=== PATIENT | female | born 1940 | race Hispanic/Latino ===

== ENCOUNTER 2023-12-09 03:21 | Inpatient (IN) | payer MEDICARE ==
[2023-12-09] MEDS ORDERED: Nitroglycerin 2% Ointment 1 INCH/1 GM Packet ONE (03:52)
[2023-12-09 04:19] LABS: #Basophils 0.05 10x3/uL (0.0-0.2); %Basophils 0.4 % (0.0-1.0); %Eosinophils 2.7 % (0.0-10.0); %Lymphocytes 9.7 % (21.0-51.0); %Monocytes 4.9 % (0.0-10.0); %Neutrophils 81.9 % (42.0-75.0); Hematocrit 38.4 % (36.0-47.0); Hemoglobin 12.5 g/dL (12.0-16.0); Mean Corpuscular HGB CONC 32.6 g/dL (32.0-36.0); Mean Corpuscular Hemoglobin 28.4 pg (27.0-31.0); Mean Corpuscular Volume 87.3 fL (78.0-98.0); Mean Platelet Volume 10.8 fL (7.4-10.4); Platelet Count 210 10x3/uL (130-400); RBC Distribution Width 15.1 % (11.5-14.5)
[2023-12-09 04:36] LABS: ALT (SGPT) 21 U/L (8-55); AST (SGOT) 33 U/L (5-34); Albumin 4.2 g/dL (3.4-4.8); Alkaline Phosphatase 162 U/L (40-110); Anion Gap 18 mmol/L (10-20); BUN (Urea Nitrogen) 68 mg/dL (9.8-20.1); Bilirubin, Total 0.4 mg/dL (0.2-1.2); Calc. Creatinine Clearance 0 mL/min (70-130); Calcium 9.5 mg/dL (7.8-10.44); Carbon Dioxide 21 mmol/L (23-31); Chloride 109 mmol/L (98-107); Estimated GFR 18; Globulin 3.1 g/dL (2.4-3.5); Glucose 117 mg/dL (83-110); Potassium 4.3 mmol/L (3.5-5.1); Protein, Total 7.3 g/dL (5.8-8.1); Sodium 144 mmol/L (136-145)
[2023-12-09 04:40] LABS: Troponin I 0.024 ng/mL (< 0.028)
[2023-12-09] MEDS ORDERED: Morphine 2 MG/ML VIAL ONE (05:45)
[2023-12-09] MEDS ORDERED: Sodium Chloride 0.9% 250 ML 250 ML ONE (06:15)
[2023-12-09] MEDS ORDERED: Azithromycin 500 MG VIAL ONE (06:15)
[2023-12-09 08:07] LABS: Troponin I 0.022 ng/mL (< 0.028)
[2023-12-09 08:39] VITALS: BMI 23.6
[2023-12-09] MEDS ORDERED: Famotidine 20 MG TAB ONE (08:47)
[2023-12-09] MEDS ORDERED: Enoxaparin 30 MG (0.3 mL) SYRINGE ONE (08:48)
[2023-12-09] MEDS ORDERED: Acetaminophen/Codeine 30-300mg Tablet ONE (08:48)
[2023-12-09] MEDS ORDERED: Insulin Lispro 100 UNIT/ML 10 ML VIAL SC PRN (08:51)
[2023-12-09] MEDS ORDERED: Dextrose 5% in Water 1,000 ML IV PRN (08:51)
[2023-12-09] MEDS ORDERED: Glucagon 1 MG/ML KIT IM PRN (08:51)
[2023-12-09] MEDS ORDERED: Dextrose 50% Abboject 50 ML SYRINGE SLOW IVP PRN (08:51)
[2023-12-09] MEDS: Acetaminophen/Codeine 30-300mg Tablet PO PRN (09:08)
[2023-12-09] MEDS: Famotidine 20 MG TAB PO SCH (09:11)
[2023-12-09] MEDS: Enoxaparin 30 MG (0.3 mL) SYRINGE SC SCH (09:12)
[2023-12-09] MEDS ORDERED: BUMETANIDE 0.5 MG PO SCH (09:15)
[2023-12-09] MEDS ORDERED: Non-Formulary Item 1 EACH (Ferrous Sulfate [Ferrous Sulfate] 325 MG Tab) PO SCH (09:15)
[2023-12-09] MEDS ORDERED: Ondansetron ODT 4 MG TAB ONE (09:51)
[2023-12-09] MEDS: Ondansetron ODT 4 MG TAB PO PRN (09:58)
[2023-12-09 10:30] LABS: Troponin I 0.025 ng/mL (< 0.028)
[2023-12-09] MEDS ORDERED: Iopamidol 370 76% 100 ML VIAL ONE (10:34)
[2023-12-09] MEDS ORDERED: hydrALAZINE 25 MG TAB ONE (10:53)
[2023-12-09] MEDS ORDERED: Gabapentin 300 MG CAP ONE (10:53)
[2023-12-09] MEDS: hydrALAZINE 25 MG TAB PO SCH (11:09)
[2023-12-09] MEDS: Gabapentin 300 MG CAP PO SCH ×2 (11:09→20:57)
[2023-12-09] MEDS: Ferrous Sulfate 325 MG TAB PO SCH (11:34)
[2023-12-09] MEDS: Bumetanide 1 MG TAB PO SCH (11:34)
[2023-12-09] MEDS: Isosorbide Dinitrate 20 MG TAB PO SCH (14:45)
[2023-12-09] MEDS: Lactated Ringer's 1,000 ML IV SCH (14:45)
[2023-12-09] MEDS ORDERED: Isosorbide Dinitrate 5 MG TAB PO SCH (15:00)
[2023-12-09] MEDS: Acetaminophen 500 MG TAB PO PRN (15:06)
[2023-12-09] MEDS: Diclofenac 1% 50 GM TOPICAL GEL TP SCH (16:59)
[2023-12-09] MEDS: Mometasone 100 MCG/Formoterol 5 MCG 120 PUFF INHALER INH SCH (18:40)
[2023-12-09] MEDS ORDERED: Ondansetron PF 4 MG/2 ML Vial IVP PRN (19:26)
[2023-12-09] MEDS: Icosapent Ethyl 1 GM CAPSULE PO SCH (20:57)
[2023-12-09] MEDS ORDERED: ICOSAPENT ETHYL 1 GM PO SCH (21:00)
[2023-12-10 07:22] LABS: #Basophils 0.05 10x3/uL (0.0-0.2); %Basophils 0.7 % (0.0-1.0); %Eosinophils 2.8 % (0.0-10.0); %Lymphocytes 16.2 % (21.0-51.0); %Monocytes 6.7 % (0.0-10.0); %Neutrophils 73.3 % (42.0-75.0); Hematocrit 35.5 % (36.0-47.0); Mean Corpuscular Hemoglobin 28.9 pg (27.0-31.0); Mean Corpuscular Volume 93.2 fL (78.0-98.0); Mean Platelet Volume 10.5 fL (7.4-10.4); Platelet Count 183 10x3/uL (130-400); RBC Distribution Width 15.4 % (11.5-14.5); Red Blood Cell (RBC) Count 3.81 mill/uL (4.20-5.40)
[2023-12-10 08:07] LABS: ALT (SGPT) 18 U/L (8-55); AST (SGOT) 33 U/L (5-34); Albumin 3.3 g/dL (3.4-4.8); Alkaline Phosphatase 122 U/L (40-110); Anion Gap 12 mmol/L (10-20); BUN (Urea Nitrogen) 49 mg/dL (9.8-20.1); Bilirubin, Total 0.4 mg/dL (0.2-1.2); Calc. Creatinine Clearance 22 mL/min (70-130); Calcium 8.6 mg/dL (7.8-10.44); Carbon Dioxide 20 mmol/L (23-31); Chloride 111 mmol/L (98-107); Estimated GFR 24; Globulin 2.5 g/dL (2.4-3.5); Glucose 112 mg/dL (83-110); Potassium 4.9 mmol/L (3.5-5.1); Protein, Total 5.8 g/dL (5.8-8.1); Sodium 138 mmol/L (136-145)
[2023-12-10] MEDS: Cholecalciferol 1,000 UNITS (25 MCG) TAB PO SCH (08:36)
[2023-12-10] MEDS: Montelukast Sodium 10 mg Tablet PO SCH (08:36)
[2023-12-10] MEDS: Folic Acid 1 MG TAB PO SCH (08:36)
[2023-12-10] MEDS: Clopidogrel Bisulfate 75 MG TAB PO SCH (08:36)
[2023-12-10] MEDS: Pantoprazole DR 40 MG TAB PO SCH (08:36)
[2023-12-10] MEDS: Atorvastatin Calcium 40 MG TAB PO SCH (08:37)
[2023-12-10] MEDS: Fluticasone Propionate Nasal Spray 16 gm Bottle NASAL SCH (08:37)
[2023-12-10] MEDS: Valsartan 80 MG TAB PO SCH (08:37)
[2023-12-10] MEDS: Amlodipine 5 MG TAB PO SCH (08:38)
[2023-12-10] MEDS ORDERED: Non-Formulary Item 1 EACH (Amlodipine Besylate [Norvasc] 2.5 MG Tablet) PO SCH (09:00)
[2023-12-10] MEDS ORDERED: Non-Formulary Item 1 EACH (Cholecalciferol (Vitamin D3) [Vitamin D3] 25 MCG Capsule) PO SCH (09:00)
[2023-12-10] MEDS ORDERED: Non-Formulary Item 1 EACH (Atorvastatin Calcium [Atorvastatin Calcium] 80 MG Tablet) PO SCH (09:00)
[2023-12-10] MEDS ORDERED: Loratadine 10 MG TAB PO SCH (09:00)
[2023-12-10] MEDS ORDERED: Non-Formulary Item 1 EACH (Fluticasone Propionate [Fluticasone Propionate] 50 MCG Blst.W. INH SCH (09:00)
[2023-12-10] MEDS ORDERED: Cetirizine HCl 10 MG TAB PO SCH (09:00)
[2023-12-10] MEDS: Loratadine 10 MG TAB PO PRN (14:18)
[2023-12-11 05:31] LABS: #Basophils 0.04 10x3/uL (0.0-0.2); %Basophils 0.6 % (0.0-1.0); %Eosinophils 6.5 % (0.0-10.0); %Lymphocytes 20.8 % (21.0-51.0); %Monocytes 8.4 % (0.0-10.0); %Neutrophils 63.3 % (42.0-75.0); Hematocrit 32.6 % (36.0-47.0); Hemoglobin 10.2 g/dL (12.0-16.0); Mean Corpuscular HGB CONC 31.3 g/dL (32.0-36.0); Mean Corpuscular Hemoglobin 28.7 pg (27.0-31.0); Mean Corpuscular Volume 91.8 fL (78.0-98.0); Mean Platelet Volume 10.7 fL (7.4-10.4); Platelet Count 185 10x3/uL (130-400); RBC Distribution Width 15.4 % (11.5-14.5); Red Blood Cell (RBC) Count 3.55 mill/uL (4.20-5.40)
[2023-12-11 07:14] LABS: Bacteria/HPF None Seen HPF (None Seen); Bilirubin Negative (Negative); Blood, Urine Negative (Negative); Clarity Clear (Clear); Glucose, Urine (Dipstick) Normal (Negative); Ketone, Urine Negative (Negative); Leukocyte Negative Leu/uL (Negative); Nitrite Negative (Negative); Protein, Urine (Dipstick) Negative (Neg-Trace); RBC/HPF None Seen HPF (0-3); Specific Gravity, Urine 1.019 (1.002-1.036); Squamous Epithelial None Seen HPF (0-3); Urobilinogen Normal mg/dL (Less than 2); WBC/HPF 0-3 HPF (0-3)
[2023-12-11 08:04] LABS: Albumin 2.8 g/dL (3.4-4.8); Anion Gap 11 mmol/L (10-20); BUN (Urea Nitrogen) 52 mg/dL (9.8-20.1); BUN/Creatinine Ratio 22.13; Calc. Creatinine Clearance 19 mL/min (70-130); Calcium 8.2 mg/dL (7.8-10.44); Carbon Dioxide 24 mmol/L (23-31); Chloride 110 mmol/L (98-107); Estimated GFR 20; Glucose 102 mg/dL (83-110); Potassium 5.2 mmol/L (3.5-5.1); Sodium 140 mmol/L (136-145)
[2023-12-11] MEDS: Famotidine 20 MG TAB PO SCH (08:40)
[2023-12-11] MEDS: Albumin 25% 25 GM (100 mL) BOT IVPB SCH (11:15)
[2023-12-11] MEDS: Sodium Bicarbonate 75 MEQ in Sodium Chloride 0.45% 1,000 ML IV SCH ×2 (13:25→16:11)
[2023-12-11 19:18] LABS: Albumin 3.4 g/dL (3.4-4.8); Anion Gap 11 mmol/L (10-20); BUN (Urea Nitrogen) 47 mg/dL (9.8-20.1); Calc. Creatinine Clearance 20 mL/min (70-130); Calcium 8.3 mg/dL (7.8-10.44); Carbon Dioxide 24 mmol/L (23-31); Chloride 109 mmol/L (98-107); Estimated GFR 21; Glucose 120 mg/dL (83-110); Phosphorus 3.4 mg/dL (2.3-4.7); Potassium 5.3 mmol/L (3.5-5.1); Sodium 139 mmol/L (136-145)
[2023-12-11] MEDS: Tetrahydrozoline 0.05% OPTH 15 ML BOT EA EYE SCH (20:21)
[2023-12-11] MEDS: LOKELMA 10 GM PACKET PO SCH (22:35)
[2023-12-12] MEDS: Furosemide 40 MG (4 mL) VIAL ONE (01:31)
[2023-12-12 01:32] LABS: Base Excess (BEa) -0.9 mEq/L (-2.0 to +3.0); CO2 Tension 46.5 mmHg (35.0-45.0); Calcium, Ionized (arterial) 1.18 mmol/L (1.12-1.30); Carboxyhemoglobin (COHb) 0.8 gm% (0.0-3.0); Hematocrit-ABG 36 % (36.0-47.0); Hemoglobin (Hb) 12.3 g/dL (12.0-16.0); O2 Tension (PaO2), arterial 78.4 mmHg (> 60.0); Potassium - ABG Lab 5.02 mmol/L (3.70-5.30); pH, Arterial 7.349 (7.35-7.45)
[2023-12-12] MEDS: Labetalol HCl 100 MG/20 ML VIAL SLOW IVP SCH (01:32)
[2023-12-12 01:33] LABS: ALV-art Gradient 576.475 mmHg (0-20); Puncture Site L RADIAL
[2023-12-12 01:49] LABS: #Basophils 0.08 10x3/uL (0.0-0.2); #Eosinphils 0.72 10x3/uL (0.0-0.7); #Monocytes 0.84 10x3/uL (0.11-0.59); #Neutrophils 8.96 10x3/uL (1.40-6.50); %Basophils 0.6 % (0.0-1.0); %Eosinophils 5.8 % (0.0-10.0); %Monocytes 6.7 % (0.0-10.0); %Neutrophils 71.6 % (42.0-75.0); Hematocrit 38.1 % (36.0-47.0); Mean Corpuscular HGB CONC 31.5 g/dL (32.0-36.0); Mean Corpuscular Hemoglobin 29.1 pg (27.0-31.0); Mean Corpuscular Volume 92.3 fL (78.0-98.0); Mean Platelet Volume 10.3 fL (7.4-10.4); Platelet Count 223 10x3/uL (130-400); RBC Distribution Width 15.4 % (11.5-14.5); Red Blood Cell (RBC) Count 4.13 mill/uL (4.20-5.40); White Blood Cell (WBC) Count 12.52 10x3/uL (4.8-10.8)
[2023-12-12] MEDS: Labetalol HCl 100 MG/20 ML VIAL ONE (01:50)
[2023-12-12 02:13] LABS: Albumin 4.2 g/dL (3.4-4.8); Calcium 9.1 mg/dL (7.8-10.44); Chloride 109 mmol/L (98-107); Sodium 142 mmol/L (136-145)
[2023-12-12 02:14] LABS: Globulin 2.5 g/dL (2.4-3.5); Glucose 133 mg/dL (83-110); Protein, Total 6.7 g/dL (5.8-8.1)
[2023-12-12 02:15] LABS: Anion Gap 16 mmol/L (10-20); Carbon Dioxide 22 mmol/L (23-31)
[2023-12-12] MEDS ORDERED: Labetalol HCl 100 MG/20 ML VIAL SLOW IVP PRN (02:15)
[2023-12-12 02:16] LABS: Lactic Acid 0.92 mmol/L (0.5-2.2)
[2023-12-12 02:17] LABS: Alkaline Phosphatase 118 U/L (40-110); Bilirubin, Total 0.6 mg/dL (0.2-1.2)
[2023-12-12 02:18] LABS: BUN (Urea Nitrogen) 43 mg/dL (9.8-20.1); Calc. Creatinine Clearance 23 mL/min (70-130); Estimated GFR 25
[2023-12-12 02:20] LABS: ALT (SGPT) 21 U/L (8-55); AST (SGOT) 43 U/L (5-34)
[2023-12-12] MEDS: Ipratropium/Albuterol 3 ML NEB NEB PRN (02:21)
[2023-12-12 02:32] LABS: Iron 24 ug/dL (50-170); Iron Binding Capacity, Total 190 mcg/dL (265-497)
[2023-12-12 02:33] LABS: Troponin I 0.037 ng/mL (< 0.028)
[2023-12-12 02:40] LABS: Albumin 4.2 g/dL (3.4-4.8); Anion Gap 16 mmol/L (10-20); BUN (Urea Nitrogen) 43 mg/dL (9.8-20.1); BUN/Creatinine Ratio 22.63; Calc. Creatinine Clearance 24 mL/min (70-130); Calcium 9.2 mg/dL (7.8-10.44); Carbon Dioxide 22 mmol/L (23-31); Chloride 109 mmol/L (98-107); Estimated GFR 26; Glucose 132 mg/dL (83-110); Phosphorus 3.1 mg/dL (2.3-4.7); Potassium 5.1 mmol/L (3.5-5.1); Sodium 142 mmol/L (136-145)
[2023-12-12] MEDS: Morphine 2 MG/ML VIAL SLOW IVP SCH (02:57)
[2023-12-12 09:56] LABS: Albumin 3.8 g/dL (3.4-4.8); Anion Gap 14 mmol/L (10-20); BUN (Urea Nitrogen) 41 mg/dL (9.8-20.1); BUN/Creatinine Ratio 22.53; Calc. Creatinine Clearance 24 mL/min (70-130); Carbon Dioxide 28 mmol/L (23-31); Chloride 105 mmol/L (98-107); Estimated GFR 27; Glucose 148 mg/dL (83-110); Phosphorus 3.4 mg/dL (2.3-4.7); Potassium 4.6 mmol/L (3.5-5.1); Sodium 142 mmol/L (136-145)
[2023-12-12 10:00] LABS: Troponin I 0.177 ng/mL (< 0.028)
[2023-12-12] MEDS: Sodium Ferric Gluconate 250 MG in Sodium Chloride 0.9% 250 ML 250 ML IVPB SCH (15:05)
[2023-12-12] MEDS: Amlodipine 5 MG TAB PO SCH (21:46)
[2023-12-13 05:25] LABS: #Basophils 0.05 10x3/uL (0.0-0.2); %Basophils 0.7 % (0.0-1.0); %Eosinophils 8.5 % (0.0-10.0); %Lymphocytes 16.9 % (21.0-51.0); %Monocytes 8.6 % (0.0-10.0); Hematocrit 33.5 % (36.0-47.0); Hemoglobin 10.7 g/dL (12.0-16.0); Mean Corpuscular HGB CONC 31.9 g/dL (32.0-36.0); Mean Corpuscular Hemoglobin 28.8 pg (27.0-31.0); Mean Corpuscular Volume 90.1 fL (78.0-98.0); Mean Platelet Volume 10.7 fL (7.4-10.4); Platelet Count 186 10x3/uL (130-400); RBC Distribution Width 15.4 % (11.5-14.5); Red Blood Cell (RBC) Count 3.72 mill/uL (4.20-5.40)
[2023-12-13 08:10] LABS: Albumin 3.7 g/dL (3.4-4.8); Anion Gap 13 mmol/L (10-20); BUN (Urea Nitrogen) 35 mg/dL (9.8-20.1); BUN/Creatinine Ratio 21.34; Calc. Creatinine Clearance 27 mL/min (70-130); Calcium 9.3 mg/dL (7.8-10.44); Carbon Dioxide 26 mmol/L (23-31); Chloride 107 mmol/L (98-107); Estimated GFR 31; Glucose 109 mg/dL (83-110); Potassium 4.2 mmol/L (3.5-5.1); Sodium 142 mmol/L (136-145)
[2023-12-13 08:47] LABS: Troponin I 0.055 ng/mL (< 0.028)
[2023-12-13] MEDS ORDERED: Amlodipine 5 MG TAB PO SCH ×2 (09:00→09:30)
[2023-12-13] MEDS ORDERED: hydrALAZINE 25 MG TAB PO SCH ×2 (09:26→16:00)
[2023-12-13] MEDS: hydrALAZINE 25 MG TAB PO SCH (10:17)
[2023-12-13] MEDS: Isosorbide Dinitrate 20 MG TAB PO SCH (10:18)
[2023-12-13] MEDS: Docusate 100 MG CAP PO PRN (11:28)
[2023-12-13 19:20] VITALS: BP 149/65; TEMP 98
[2023-12-14] MEDS ORDERED: Amlodipine 5 MG TAB PO SCH (09:00)
== END 2023-12-13 19:17 | disposition home or self-care (01) | DRG 193 ==
LOC: ERS 03:21 → ERHOLD 06:18 → OBSVTOIN 07:49 → T4-A 13:07 → CCU 12-12 01:47 → MSONC 12-12 16:38
PROVIDERS: ADMIT Family Medicine; ATTEND Family Medicine
PROC: 4A033R1 Measurement of Arterial Saturation, Peripheral, Percutaneous Approach (ICD-10-PCS; principal; 2023-12-12)
DX: J18.0 Bronchopneumonia, unspecified organism (principal); I50.33 Acute on chronic diastolic (congestive) heart failure; J96.01 Acute respiratory failure with hypoxia; E87.21 Acute metabolic acidosis; I13.0 Hypertensive heart and chronic kidney disease with heart failure and stage 1 through stage 4 chronic kidney disease, or unspecified chronic kidney disease; I42.1 Obstructive hypertrophic cardiomyopathy; N17.9 Acute kidney failure, unspecified; N18.4 Chronic kidney disease, stage 4 (severe); M79.2 Neuralgia and neuritis, unspecified; E78.5 Hyperlipidemia, unspecified; I25.10 Atherosclerotic heart disease of native coronary artery without angina pectoris; H53.8 Other visual disturbances; M79.641 Pain in right hand; E88.09 Other disorders of plasma-protein metabolism, not elsewhere classified; D50.9 Iron deficiency anemia, unspecified; I16.0 Hypertensive urgency; D63.1 Anemia in chronic kidney disease; R53.81 Other malaise; F17.210 Nicotine dependence, cigarettes, uncomplicated; E11.22 Type 2 diabetes mellitus with diabetic chronic kidney disease; Z88.0 Allergy status to penicillin; Z79.899 Other long term (current) drug therapy; Z95.1 Presence of aortocoronary bypass graft; Z95.0 Presence of cardiac pacemaker
CPT/HCPCS: 36415; 36416; 71045; 71275; 72040; 72125; 74174; 80053; 80069; 81001; 82570; 82728; 82805; 83540; 83550; 83605; 83880; 84145; 84156; 84484; 84540; 85025; 87040; 93005; 93010; 94640; 94660; 96374; 96375; J0456; J1650; J1940; J2272; J2916; J7050; J7120; J7620; P9047; Q0162; Q9967